=== PATIENT | female | born 1995 | race Caucasian/White ===

== ENCOUNTER → 2020-12-11 | Outpatient (CLI) | payer SELFPAY | LOC: M LABSMTC 10:21 | PROVIDERS: ATTEND Pediatrics | DX: Z20.822 Contact with and (suspected) exposure to COVID-19 (principal) ==

== ENCOUNTER → 2020-12-14 | Outpatient (CLI) | payer SELFPAY | LOC: M LABSMTC 09:30 | PROVIDERS: ATTEND Pediatrics | DX: Z20.822 Contact with and (suspected) exposure to COVID-19 (principal) ==

== ENCOUNTER 2020-12-25 13:37 | Emergency (ER) | payer BC, SELFPAY ==
[~2020-12-25] VITALS: Ht 157.5 cm; Wt 82.9 kg
[2020-12-25] MEDS ORDERED: KYLE19.5 IU (13:50)
[2020-12-25] MEDS ORDERED: ACETAMINOPHEN 500 MG TAB PO ONE (14:45)
[2020-12-25] MEDS ORDERED: NS 1,000 ML IV ONE (14:45)
[2020-12-25 15:19] VITALS: O2SAT 97
[2020-12-25 15:21] LABS: BASO % 0.2 % (0.0-1.0); EOS # 0.2 10^3/uL (0.0-0.5); EOS % 2.5 % (0.0-3.0); HEMATOCRIT 43.1 % (36.0-47.0); HEMOGLOBIN 14.2 g/dl (12.0-15.5); LYMPH # 1.8 10^3/uL (1.5-5.0); LYMPH % 21.8 % (24.0-44.0); MEAN CORPUSCULAR HEMOGLOBIN 29.8 pg (27.0-33.0); MEAN CORPUSCULAR HGB CONC 32.9 g/dl (32.0-36.5); MEAN CORPUSCULAR VOLUME 90.4 fl (80.0-96.0); MONO # 0.6 10^3/uL (0.0-0.8); MONO % 7.3 % (0.0-5.0); NEUTROPHILS # 5.5 10^3/uL (1.5-8.5); NEUTROPHILS % 67.8 % (36.0-66.0); PLATELET COUNT, AUTOMATED 237 10^3/uL (150-450); RED BLOOD COUNT 4.77 10^6/uL (4.00-5.40); WHITE BLOOD COUNT 8.1 10^3/uL (4.0-10.0)
[2020-12-25 15:47] LABS: HCG, SERUM QUALITATIVE NEGATIVE (NEGATIVE)
[2020-12-25 15:55] LABS: ALBUMIN 4.3 GM/DL (3.2-5.2); ALT/SGPT 26 U/L (12-78); BILIRUBIN,DIRECT < 0.1 MG/DL (0.0-0.2); BILIRUBIN,TOTAL 0.4 MG/DL (0.2-1.0); BLOOD UREA NITROGEN 15 MG/DL (7-18); CALCIUM LEVEL 9.5 MG/DL (8.5-10.1); CARBON DIOXIDE LEVEL 25 MEQ/L (21-32); CHLORIDE LEVEL 107 MEQ/L (98-107); CK-MB VALUE MASS < 1.0 NG/ML (<3.6); CPK CREATINE PHOSPHOKINASE 113 U/L (26-192); CREATININE FOR GFR 0.77 MG/DL (0.55-1.30); FERRITIN 45 NG/ML (8-252); GLOMERULAR FILTRATION RATE > 60.0 (>60); GLUCOSE, FASTING 95 MG/DL (70-100); LDH LACTATE DEHYDROGENASE 324 U/L (84-246); MB/CK RELATIVE INDEX 0.88 (< OR =4); NT-PRO BNP 46 PG/ML (<125); SODIUM LEVEL 142 MEQ/L (136-145); TROPONIN I < 0.02 NG/ML (< 0.10)
[2020-12-25] MEDS ORDERED: ISOVUE-370 76% 100ML VIAL As Ordered ONE (16:02)
--- NOTE | 2020-12-25 16:41 | REP ---
INDICATION: cp, sob, elevated dimer, + covid. COMPARISON: None TECHNIQUE: 100 cc Isovue 370 FINDINGS: There is excellent visualization of the pulmonary arterial vasculature. There are no focal filling defects present that would be considered consistent with acute pulmonary emboli. The thoracic aorta is within normal limits. There is no mediastinal or hilar adenopathy. There are no pleural or pericardial effusions. Bone window technique throughout the examination shows the osseous structures to be within normal limits. Evaluation of the lung amado shows no abnormal nodules, masses, or opacities. IMPRESSION: Normal exam <Electronically signed by Boyd Guerrero > 12/25/20 1479
[2020-12-25] MEDS ORDERED: VENTAER INH (16:49)
[2020-12-25 16:57] VITALS: BP 134/82
--- NOTE | 2020-12-25 20:06 | ECGEPIP ---
[facility] - ED Test Date: 2020-12-25 Pat Name: PARISH JIMENEZ Department: Room: - Gender: Female [employer] Information [employer]: tamia : 1995 Requested By: BONITA Benjamin PA-C Order Number: [id number] Reading MD: Victor Hugo Dixon Measurements Intervals [place] Rate: 88 P: 56 LA: 130 QRS: 33 QRSD: 94 T: -1 QT: 335 QTc: 407 Interpretive Statements SINUS RHYTHM NONSPECIFIC T-WAVE ABNORMALITY NO PRIORS FOR COMPARISON Electronically Signed on 12-25-2020 20:06:01 EST by Victor Hugo Dixon
== END 2020-12-25 17:29 | disposition home or self-care (01) ==
LOC: M ED 13:37
DX: U07.1 COVID-19 (principal); Z97.5 Presence of (intrauterine) contraceptive device
CPT/HCPCS: 71275; 80048; 80076; 82550; 82553; 82728; 83605; 83615; 83880; 84484; 84703; 85025; 85379; 86140; 93005; 94760; 96360; 96361; 99284; Q9967

== ENCOUNTER → 2021-12-07 | Outpatient (REF) ==
[~2021-12-07] MED LIST: KYLE19.5 IU; VENTAER INH
== END ==
LOC: M LABSMTC 10:00
PROVIDERS: ATTEND Pediatrics
DX: Z11.52 Encounter for screening for COVID-19 (principal); Z20.822 Contact with and (suspected) exposure to COVID-19